=== PATIENT | female | born 1980 | race Caucasian/White ===

== ENCOUNTER 2016-12-08 22:24 | Observation (INO) | payer BC ==
[~2016-12-08] VITALS: Ht 172.7 cm; Wt 89.0 kg
[~2016-12-08 22:24] MED LIST: OXYC-360 PO; PREN0.01 PO
[2016-12-08 22:58] VITALS: BP 150/85; PULSE 90; RESP 18; TEMP 98.5; O2SAT 98
[2016-12-08] MEDS ORDERED: BIRTH CONTROL PILL PO (23:20)
[2016-12-08] MEDS ORDERED: MECLIZINE HCL 25 MG TAB PO ONE (23:30)
[2016-12-08] MEDS ORDERED: ONDANSETRON HCL 4 MG/2 ML VIAL IV PUSH ONE (23:30)
[2016-12-08] MEDS ORDERED: SODIUM CHLOR 0.9% 1000 ML INJ 1,000 ML IV ONE ×2 (23:30)
[2016-12-08] MEDS ORDERED: ZOFR4TAB3 SL (23:37)
[2016-12-08] MEDS ORDERED: MECL-62 PO (23:37)
--- NOTE | 2016-12-08 23:39 | PD ---
HPI Chief Complaint: Dizziness Time Seen by Provider: 23:24 Travel History International Travel<30 days: No Contact w/Intl Traveler<30days: No Traveled to known affect area: No History of Present Illness HPI This 36-year-old female says that since last night she's been having vertigo. The room was spinning last night. She woke up once in the middle of night and was spinning then to. She says that today she's had fairly persistent vertigo. She has been very nauseated and has been vomiting. She had had some diarrhea just stopped in the morning. She has not had any fever. She does say that her right ear feels a little bit muffled. She says that tonight she was too weak to stand. She is generally healthy. She does not believe that she is [facility] Past Medical History Medical History: Denies Significant Hx Diminished Hearing: No Tetanus Vaccination: Unknown Influenza Vaccination: No ?: Not LMP: 3 MONTHS AGO : 3 Para: 3 Past Surgical History Section: Yes (X3) Social History Alcohol Use: No Tobacco Use: No Substance Use: No Allergies-Medications (Allergen,Severity, Reaction): Coded Allergies: No Known Allergies (Verified , 05/31/07) Reported Meds & Prescriptions Reported Meds & Active Scripts Active Reported [ Control Pill] 1 Tab PO DAILY Review of Systems General / Constitutional: No: Fever, Chills Eyes: No: Diploplia, Foreign Body Sensation HENT: Positive: Vertigo, Other (right ear seems muffled), No: Headaches Cardiovascular: No: Chest Pain or Discomfort, Palpitations Respiratory: No: Cough, Shortness of Breath Gastrointestinal: Positive: Nausea, Vomiting, Diarrhea Genitourinary: No: Urgency, Frequency Musculoskeletal: No: Myalgias, Arthralgias Skin: No Rash, No Itching Endocrine: No: Heat Intolerance, Cold Intolerance Hematologic/Lymphatic: No: Easy Bruising Physical Exam Narrative GENERAL: Well-developed female SKIN: Focused skin assessment warm/dry. HEAD: Atraumatic. Normocephalic. EYES: Pupils equal and round. No scleral icterus. No injection or drainage. Some left beating nystagmus on left lateral gaze ENT: No nasal bleeding or discharge. Mucous membranes pink and moist. TMs are symmetrical. There is no erythema or bulging NECK: Trachea midline. No JVD. CARDIOVASCULAR: Regular rate and rhythm. No murmur appreciated. RESPIRATORY: No accessory muscle use. Clear to auscultation. Breath sounds equal bilaterally. GASTROINTESTINAL: Abdomen soft, non-tender, nondistended. Hepatic and splenic margins not palpable. MUSCULOSKELETAL: No obvious deformities. No clubbing. No cyanosis. No edema. NEUROLOGICAL: Awake and alert. No obvious cranial nerve deficits. Motor grossly within normal limits. Normal speech. PSYCHIATRIC: Appropriate mood and affect; insight and judgment normal. Data Data Last Documented VS Vital Signs Date Time Temp Pulse Resp B/P Pulse Ox O2 Delivery O2 Flow Rate FiO2 12/08/16 22:58 98.5 90 18 150/85 98 MDM Medical Decision Making Medical Screen Exam Complete: Yes Emergency Medical Condition: Yes Medical Record Reviewed: Yes Differential Diagnosis Differential includes vertigo, labyrinthitis, viral syndrome Narrative Course Patient is having significant vertigo with vomiting. She'll be given IV fluids and symptomatic treatment. Diagnosis Primary Impression: Labyrinthitis Scripts Meclizine 25 Mg Tab25 Mg PO TID PRN (VERTIGO) #30 TAB Ref 0 Prov:Kenny Ronquillo MD 12/08/16 Ondansetron Odt (Zofran Odt)4 Mg Tab4 Mg SL Q6HR PRN (Nausea/Vomiting) #10 TAB Ref 0 Prov:Kenny Ronquillo MD 12/08/16 Kenny Ronquillo MD Dec 08, 2016 23:39
[2016-12-08 23:58] LABS: AUTOMATED NEUTROPHIL # 10.1 TH/MM3 (1.8-7.7); BASOPHIL # 0.1 TH/MM3 (0-0.2); BASOPHIL % 0.4 % (0.0-2.0); EOSINOPHIL % 0.3 % (0.0-4.0); HEMATOCRIT 39.9 % (35.0-46.0); HEMO FLAGS DIFF FINAL; LYMPH % 15.6 % (9.0-44.0); LYMPHOCYTE # 2.1 TH/MM3 (1.0-4.8); MEAN CELL VOLUME 83.5 FL (80.0-100.0); MEAN CORPUSCULAR HEMOGLOBIN 28.2 PG (27.0-34.0); MEAN CORPUSCULAR HGB CONC 33.8 % (32.0-36.0); MONO % 6.6 % (0.0-8.0); NEUT % 77.1 % (16.0-70.0); PLATELET COUNT 245 TH/MM3 (150-450); RED BLOOD COUNT 4.78 MIL/MM3 (4.00-5.30); RED CELL DISTRIBUTION WIDTH 13.3 % (11.6-17.2); WHITE BLOOD COUNT 13.2 TH/MM3 (4.0-11.0)
[2016-12-09] VITALS (8 sets, daily range): BP systolic 122–140; BP diastolic 68–79; PULSE 69–88; RESP 16–18; TEMP 97.9–98.9; O2SAT 98–100
[2016-12-09 00:06] LABS: POTASSIUM 3.6 MEQ/L (3.5-5.1)
[2016-12-09 00:11] LABS: BICARBONATE 23.2 MEQ/L (21.0-32.0)
[2016-12-09] MEDS ORDERED: ONDANSETRON HCL 4 MG/2 ML VIAL IV PUSH ONE (01:30)
[2016-12-09] MEDS ORDERED: SODIUM CHLOR 0.9% 1000 ML INJ 1,000 ML IV ONE (01:45)
[2016-12-09 01:49] LABS: BLOOD, URINE LARGE (NEG); GLUCOSE,URINE NEG (NEG); NITRITE,URINE NEG (NEG)
[2016-12-09 01:50] LABS: KETONE, URINE 80 OR GREATER mg/dL (NEG)
[2016-12-09 01:54] LABS: URINE COLOR PINK (YELLW/STRAW)
[2016-12-09 01:56] LABS: BACTERIA, URINE MOD /hpf; COMMENT (UR) CULTURE INDICATED; CULTURE IF INDICATED CULTURE INDICATED; RBC, URINE INNUM /hpf (0-3); SQUAMOUS EPITHELIAL CELL URINE > 8 /hpf (0-5)
--- NOTE | 2016-12-09 03:43 | RADRPT ---
EXAM DATE/TIME: 12/09/2016 03:20 [place] COMPARISON: No previous studies available for comparison. INDICATIONS : Dizziness with nausea and vomiting. RADIATION DOSE: 64.55 CTDIvol (mGy) MEDICAL HISTORY : None SURGICAL HISTORY : None. ENCOUNTER: Initial ACUITY: 1 day PAIN SCALE: 0/10 LOCATION: cranial TECHNIQUE: Multiple contiguous axial images were obtained of the head. Using automated exposure control and adj ustment of the mA and/or kV according to patient size, radiation dose was kept as low as reasonably a chievable to obtain optimal diagnostic quality images. DICOM format image data is available electro nically for review and comparison. FINDINGS: CEREBRUM: The ventricles are normal for age. No evidence of midline shift, mass lesion, hemorrhage or acute in farction. No extra-axial fluid collections are seen. POSTERIOR FOSSA: The cerebellum and brainstem are intact. The 4th ventricle is midline. The cerebellopontine angle i s unremarkable. EXTRACRANIAL: The visualized portion of the orbits is intact. SKULL: The calvaria is intact. No evidence of skull fracture. CONCLUSION: Normal examination for a patient of this age. Delmar Lombardi MD on December 09, 2016 at 3:41 Board Certified Radiologist. This report was verified electronically.
--- NOTE | 2016-12-09 04:08 | PD ---
Physical Exam Date Seen by Provider: Dec 09, 2016 Time Seen by Provider: 00:30 Narrative Accepted in transfer of care from Dr. Villeda GENERAL: Well-developed well-nourished female in no acute distress no respiratory distress; GCS 15 SKIN: Warm and dry. HEAD: Normocephalic. EYES: No scleral icterus. No injection or drainage. NECK: Supple, trachea midline. No JVD or lymphadenopathy. CARDIOVASCULAR: Regular rate and rhythm without murmurs, gallops, or rubs. RESPIRATORY: Breath sounds equal bilaterally. No accessory muscle use. Data Data Last Documented VS Vital Signs Date Time Temp Pulse Resp B/P Pulse Ox O2 Delivery O2 Flow Rate FiO2 12/09/16 03:15 98.1 88 16 130/74 100 Room Air Orders Complete Blood Count With Diff (12/08/16 23:30) Basic Metabolic Panel (Bmp) (12/08/16 23:30) Sodium Chlor 0.9% 1000 Ml Inj (Ns 1000 M (12/08/16 23:30) Sodium Chlor 0.9% 1000 Ml Inj (Ns 1000 M (12/08/16 23:30) Ondansetron Inj (Zofran Inj) (12/08/16 23:30) Meclizine (Antivert) (12/08/16 23:30) Ondansetron Inj (Zofran Inj) (12/09/16 01:30) Sodium Chlor 0.9% 1000 Ml Inj (Ns 1000 M (12/09/16 01:45) Urinalysis - C+S If Indicated (12/09/16 01:32) Ed Urine Pregnancytest Poc (12/09/16 01:32) Urine Culture (12/09/16 01:40) Ct Brain W/O Iv Contrast(Rout) (12/09/16 ) Place In Observation (12/09/16 ) Vital Signs (Adult) Q4H (12/09/16 04:02) Activity Oob With Assistance (12/09/16 04:02) Catalog Specialist / Telemetry .CONTINUOUS (12/09/16 04:02) Diet Heart Healthy (12/09/16 Breakfast) Sodium Chloride 0.9% Flush (Ns Flush) (12/09/16 04:15) Sodium Chloride 0.9% Flush (Ns Flush) (12/09/16 09:00) Ondansetron Inj (Zofran Inj) (12/09/16 04:15) Metoclopramide Inj (Reglan Inj) (12/09/16 04:15) Basic Metabolic Panel (Bmp) (12/10/16 06:00) Complete Blood Count With Diff (12/10/16 06:00) Naloxone Inj (Narcan Inj) (12/09/16 04:15) Admit Order (Ed Use Only) (12/09/16 ) ^ Saline Lock (12/09/16 04:03) Resp Oxygen Isael C Titrat 1-4 L (12/09/16 ) Notify Dr: Other (12/09/16 04:03) Sodium Chloride 0.9% Flush (Ns Flush) (12/09/16 09:00) Sodium Chloride 0.9% Flush (Ns Flush) (12/09/16 04:15) Ciprofloxacin 400 Mg Premix (Cipro 400 M (12/09/16 04:15) Labs Laboratory Tests Test 12/08/16 12/09/16 23:15 01:40 White Blood Count 13.2 TH/MM3 Red Blood Count 4.78 MIL/MM3 Hemoglobin 13.5 GM/DL Hematocrit 39.9 % Mean Corpuscular Volume 83.5 FL Mean Corpuscular Hemoglobin 28.2 PG Mean Corpuscular Hemoglobin 33.8 % Concent Red Cell Distribution Width 13.3 % Platelet Count 245 TH/MM3 Mean Platelet Volume 9.3 FL Neutrophils (%) (Auto) 77.1 % Lymphocytes (%) (Auto) 15.6 % Monocytes (%) (Auto) 6.6 % Eosinophils (%) (Auto) 0.3 % Basophils (%) (Auto) 0.4 % Neutrophils # (Auto) 10.1 TH/MM3 Lymphocytes # (Auto) 2.1 TH/MM3 Monocytes # (Auto) 0.9 TH/MM3 Eosinophils # (Auto) 0.0 TH/MM3 Basophils # (Auto) 0.1 TH/MM3 CBC Comment DIFF FINAL Differential Comment Sodium Level 142 MEQ/L Potassium Level 3.6 MEQ/L Chloride Level 109 MEQ/L Carbon Dioxide Level 23.2 MEQ/L Anion Gap 10 MEQ/L Blood Urea Nitrogen 16 MG/DL Creatinine 0.79 MG/DL Estimat Glomerular Filtration 82 ML/MIN Rate Random Glucose 112 MG/DL Calcium Level 8.5 MG/DL Urine Color PINK Urine Turbidity CLOUDY Urine pH 6.0 Urine Specific [place] 1.020 Urine Protein TRACE mg/dL Urine Glucose (UA) NEG mg/dL Urine Ketones 80 OR GREATER mg/dL Urine Occult Blood LARGE Urine Nitrite NEG Urine Bilirubin NEG Urine Leukocyte Esterase SMALL Urine RBC INNUM /hpf Urine WBC 6-8 /hpf Urine Squamous Epithelial > 8 /hpf Cells Urine Bacteria MOD /hpf Microscopic Urinalysis Comment CULTURE INDICATED MDM Medical Record Reviewed: Yes Supervised Visit with MIC: No Interpretation(s) Last Impressions Head CT 12/09/16 0000 Signed Impressions: Service Date/Time: November 03:20 - CONCLUSION: Normal examination for a patient of this age. Delmar Lombardi MD CBC & BMP Diagram 12/08/16 23:15 Urinalysis positive red blood cells squamous epithelial cells and moderate bacteria; patient is currently menstruating and specimen collected as a clean- catch most likely cross contamination [id number] hCG negative Differential Diagnosis Accepted in transfer of care from Dr. Villeda; please refer to his dictation Narrative Course Accepted in transfer of care from Dr. Villeda for follow-up of pending medication response labs and disposition Patient required additional IV fluids and Zofran Patient continues to drain very nauseated with marked dizziness; patient unable to sit up or ambulate without marked dizziness increasing nausea without overall improvement of symptoms therefore will admit to observation Patient with abnormal urinalysis most likely secondary to contamination as patient is currently menstruating and blood was noted and specimen; point-of- care hCG is negative; culture indicated; patient presumptively covered with Rocephin 1 g IV piggyback Call placed to [facility] service case discussed with Dr. Vazquez will admit to observation Physician Communication Physician Communication discussed with Dr Vazquez Diagnosis Primary Impression: Labyrinthitis Scripts Meclizine 25 Mg Tab25 Mg PO TID PRN (VERTIGO) #30 TAB Ref 0 Prov:Kenny Ronquillo MD 12/08/16 Ondansetron Odt (Zofran Odt)4 Mg Tab4 Mg SL Q6HR PRN (Nausea/Vomiting) #10 TAB Ref 0 Prov:Kenny Ronquillo MD 12/08/16 Sasha Lee MD Dec 09, 2016 04:08
[2016-12-09] MEDS ORDERED: NALOXONE HCL 0.4 MG/ML AMP IV PRN (04:15)
[2016-12-09] MEDS ORDERED: cefTRIAXone INJ 1,000 MG in SODIUM CHLORIDE 0.9% INJ 100 ML IV ONE (04:15)
[2016-12-09] MEDS ORDERED: SODIUM CHLORIDE 0.9% FLUSH 10 ML FLUSH IV FLUSH PRN (04:15)
[2016-12-09] MEDS ORDERED: ONDANSETRON HCL 4 MG/2 ML VIAL IVP PRN (04:15)
[2016-12-09] MEDS ORDERED: SODIUM CHLORIDE 0.9% FLUSH 10 ML FLUSH IVF PRN (04:15)
[2016-12-09] MEDS ORDERED: METOCLOPRAMIDE HCL 10 MG/2 ML VIAL IV PUSH PRN (04:15)
[2016-12-09] MEDS ORDERED: CIPROFLOXACIN 400 MG PREMIX 200 ML IV SCH (05:00)
[2016-12-09] MEDS ORDERED: D5-1/2 NS + KCL 20 MEQ INJ 1,000 ML IV SCH (08:15)
[2016-12-09 08:55] LABS: AUTOMATED NEUTROPHIL # 6.3 TH/MM3 (1.8-7.7); BASOPHIL % 0.5 % (0.0-2.0); EOSINOPHIL % 0.5 % (0.0-4.0); HEMATOCRIT 35.9 % (35.0-46.0); HEMO FLAGS DIFF FINAL; LYMPH % 28.7 % (9.0-44.0); LYMPHOCYTE # 2.9 TH/MM3 (1.0-4.8); MEAN CELL VOLUME 84.2 FL (80.0-100.0); MEAN CORPUSCULAR HEMOGLOBIN 27.4 PG (27.0-34.0); MEAN CORPUSCULAR HGB CONC 32.5 % (32.0-36.0); MONO % 7.6 % (0.0-8.0); NEUT % 62.7 % (16.0-70.0); PLATELET COUNT 226 TH/MM3 (150-450); RED BLOOD COUNT 4.27 MIL/MM3 (4.00-5.30); RED CELL DISTRIBUTION WIDTH 13.1 % (11.6-17.2)
[2016-12-09] MEDS ORDERED: SODIUM CHLORIDE 0.9% FLUSH 10 ML FLUSH IV FLUSH SCH ×2 (09:00)
[2016-12-09 09:07] LABS: CHLORIDE 113 MEQ/L (98-107); POTASSIUM 3.8 MEQ/L (3.5-5.1); SODIUM (NA) 144 MEQ/L (136-145)
[2016-12-09 09:12] LABS: ANION GAP 7 MEQ/L (5-15); BLOOD UREA NITROGEN 10 MG/DL (7-18)
[2016-12-09] MEDS ORDERED: AMOX875T PO (09:13)
[2016-12-09] MEDS ORDERED: MECL-62 PO (09:13)
[2016-12-09] MEDS ORDERED: ZOFR4TAB3 SL (09:13)
[2016-12-09] MEDS ORDERED: WALKER WHEELS/F1 MIS (09:14)
[2016-12-09 09:15] LABS: ALT (GPT) 18 U/L (10-53); AST (GOT) 11 U/L (15-37); GLOMERULAR FILTRATION RATE 87 ML/MIN (>89)
[2016-12-09] MEDS ORDERED: AMOXICILLIN 875 MG TAB PO ONE (09:15)
[2016-12-09 09:16] LABS: TOTAL BILIRUBIN ADULT 0.5 MG/DL (0.2-1.0)
[2016-12-09 09:18] LABS: ALKALINE PHOSPHATASE 70 U/L (45-117)
--- NOTE | 2016-12-09 09:23 | HHI.HP ---
[facility] No Primary Care Physician Admission Diagnosis dizziness; intractable nausea/vomiting Diagnoses: Travel History International Travel<30 Days: No Contact w/Intl Traveler <30 Da: No Traveled to Known Affected Are: No History of Present Illness 36-year-old female with no significant past medical history presents with a three-day history of vertigo, described as room spinning the right, 2 day history of right ear congestion, with decreased hearing on that side. She denies any fevers or chills. Denies any chest pain or shortness of breath. She does report vomiting starting yesterday without hematemesis. She says that nausea has resolved at this time, however still with vertigo. Review of Systems Performed and negative except for history of present illness and past medical history. Past Family Social History Past Medical History She denies any significant past medical history Past Surgical History Reported Medications Patient denies taking any home medications Allergies: Coded Allergies: No Known Allergies (Verified , 05/31/07) Family History Family history reviewed with the patient and found to be currently noncontributory Social History Nonsmoker. Nondrinker. Denies illicit drugs. Physical Exam Vital Signs Vital Signs Date Time Temp Pulse Resp B/P Pulse Ox O2 Delivery O2 Flow Rate FiO2 12/09/16 08:00 98.3 82 16 122/75 98 12/09/16 05:33 99 21 12/09/16 05:08 98.9 69 18 122/79 100 12/09/16 04:45 76 16 125/75 98 Room Air 12/09/16 03:15 98.1 88 16 130/74 100 Room Air 12/09/16 02:45 88 16 12/09/16 01:10 83 16 140/68 100 Room Air 12/09/16 00:20 69 16 132/74 100 Room Air 12/08/16 23:25 88 16 12/08/16 22:58 98.5 90 18 150/85 98 Physical Exam GENERAL: This is a well-nourished, well-developed patient, . appears off balance.3. SKIN: No rashes, ecchymoses or lesions. Cool and dry. HEAD: Atraumatic. Normocephalic. No temporal or scalp tenderness. EYES: Pupils equal round and reactive. Extraocular motions intact. No scleral icterus. No injection or drainage. ENT: Nose without bleeding, purulent drainage or septal hematoma. Throat without erythema, tonsillar hypertrophy or exudate. Uvula midline. Airway patent. Right ear with effusion. Tympanic membrane intact. No erythema. NECK: Trachea midline. No JVD or lymphadenopathy. Supple, nontender, no meningeal signs. CARDIOVASCULAR: Regular rate and rhythm without murmurs, gallops, or rubs. RESPIRATORY: Clear to auscultation. Breath sounds equal bilaterally. No wheezes , rales, or rhonchi. GASTROINTESTINAL: Abdomen soft, non-tender, nondistended. No hepato-splenomegaly , or palpable masses. No guarding. MUSCULOSKELETAL: Extremities without clubbing, cyanosis, or edema. No joint tenderness, effusion, or edema noted. No calf tenderness. Negative Homans sign bilaterally. NEUROLOGICAL: Awake and alert. Cranial nerves II through XII intact, with exception of right-sided nystagmus. Motor and sensory grossly within normal limits. Five out of 5 muscle strength in all muscle groups. Normal speech. Patient able to stand and walk, however very poor balance when closes eyes. Laboratory Laboratory Tests Test 12/08/16 12/09/16 12/09/16 23:15 01:40 08:43 White Blood Count 13.2 10.0 Red Blood Count 4.78 4.27 Hemoglobin 13.5 11.7 Hematocrit 39.9 35.9 Mean Corpuscular Volume 83.5 84.2 Mean Corpuscular Hemoglobin 28.2 27.4 Mean Corpuscular Hemoglobin 33.8 32.5 Concent Red Cell Distribution Width 13.3 13.1 Platelet Count 245 226 Mean Platelet Volume 9.3 8.6 Neutrophils (%) (Auto) 77.1 62.7 Lymphocytes (%) (Auto) 15.6 28.7 Monocytes (%) (Auto) 6.6 7.6 Eosinophils (%) (Auto) 0.3 0.5 Basophils (%) (Auto) 0.4 0.5 Neutrophils # (Auto) 10.1 6.3 Lymphocytes # (Auto) 2.1 2.9 Monocytes # (Auto) 0.9 0.8 Eosinophils # (Auto) 0.0 0.0 Basophils # (Auto) 0.1 0.0 CBC Comment DIFF FINAL DIFF FINAL Differential Comment Sodium Level 142 144 Potassium Level 3.6 3.8 Chloride Level 109 113 Carbon Dioxide Level 23.2 24.0 Anion Gap 10 7 Blood Urea Nitrogen 16 10 Creatinine 0.79 0.75 Estimat Glomerular Filtration 82 87 Rate Random Glucose 112 94 Calcium Level 8.5 7.8 Urine Color PINK Urine Turbidity CLOUDY Urine pH 6.0 Urine Specific [place] 1.020 Urine Protein TRACE Urine Glucose (UA) NEG Urine Ketones 80 OR GREATER Urine Occult Blood LARGE Urine Nitrite NEG Urine Bilirubin NEG Urine Leukocyte Esterase SMALL Urine RBC INNUM Urine WBC 6-8 Urine Squamous Epithelial > 8 Cells Urine Bacteria MOD Microscopic Urinalysis Comment CULTURE INDICATED Total Bilirubin 0.5 Aspartate Amino Transf 11 (AST/SGOT) Alanine Aminotransferase 18 (ALT/SGPT) Alkaline Phosphatase 70 Total Protein 6.2 Albumin 2.7 Lipase 136 Date/Time Procedure Status Source Growth 12/09/16 01:40 Urine Culture Received Urine Clean Catch Pending Result Diagram: 12/09/16 0843 12/09/16 0843 Assessment and Plan Assessment and Plan //Labyrinthitis. Right-sided //Vertigo //Nausea and vomiting Nausea and vomiting appears to have improved. We will discharge home with meclizine, course of amoxicillin for treatment of labyrinthitis. -Patient denies any dysuria. She is on her period. Unlikely UTI. -She will have walker at home. //Prophylaxis. Patient will be discharged home. Surya Case MD Dec 09, 2016 09:23
[2016-12-09] MEDS ORDERED: AMOXICILLIN 875 MG TAB PO SCH (21:00)
== END 2016-12-09 12:27 | disposition home or self-care (01) ==
LOC: PHED 22:24 → PHEDA 12-09 04:05 → PH3A 12-09 04:55
PROVIDERS: ADMIT Internal Medicine; ATTEND Internal Medicine
DX: H83.01 Labyrinthitis, right ear (principal); R11.2 Nausea with vomiting, unspecified
CPT/HCPCS: 70450; 80048; 80053; 81001; 83690; 84703; 85025; 87086; 96361; 96374; 96376; 99285; G0378; J0696; J0744; J2405; J2765; J7030